=== PATIENT | female | born 2000 | race Caucasian/White ===

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

== ENCOUNTER 2024-03-25 06:31 | Emergency (ER) | payer OTHER ==
[~2024-03-25] VITALS: Ht 165.1 cm; Wt 61.2 kg
[~2024-03-25 06:31] MED LIST: CIPRO500 MG PO
[2024-03-25] MEDS ORDERED: CEFTRIAXONE SODIUM 2,000 MG VIAL IM ONE (08:45)
[2024-03-25] MEDS ORDERED: METHYLPREDNISOLONE SOD SUCC 40 MG VIAL IM ONE (08:45)
[2024-03-25] MEDS ORDERED: DIPHENHYDRAMINE HCL 50 MG/ML VIAL 1ML IM ONE (08:45)
== END 2024-03-25 10:14 | disposition home or self-care (01) ==
LOC: ER 06:32
DX: S40.862A Insect bite (nonvenomous) of left upper arm, initial encounter (principal); S80.862A Insect bite (nonvenomous), left lower leg, initial encounter; W57.XXXA Bitten or stung by nonvenomous insect and other nonvenomous arthropods, initial encounter; Y93.89 Activity, other specified; Y92.89 Other specified places as the place of occurrence of the external cause; Z88.0 Allergy status to penicillin